=== PATIENT | female | born 1960 | race Caucasian/White ===

== ENCOUNTER 2019-08-09 12:10 | Inpatient (IN) ==
[2019-08-09] MEDS: ZOFRAN IV ONE ×2 (12:31→13:34)
[2019-08-09] MEDS ORDERED: NS 1,000 ML IV ONE ×2 (12:31→15:13)
[2019-08-09] MEDS: MORPHINE IV ONE ×2 (12:31→13:33)
[2019-08-09] MEDS ORDERED: ASPIRIN PO ONE (12:31)
--- NOTE | 2019-08-09 12:35 | Diag Imaging Result Doc PS360 ---
EXAM: CT HEAD W/O CONTRAST 08/09/2019 HISTORY: STROKE ALERT TECHNIQUE: This exam was performed using automated exposure control, adjustment of mA or kV according to patient size, and/or use of iterative reconstruction technique. COMMENT: There are abnormal lucencies in the anterior limb of the internal capsule and caudate nucleus head on the right. There is some patchy lucency in the periventricular white matter particularly near the atria of the lateral ventricles. There are atherosclerotic calcifications in the right vertebral and both internal carotid arteries. No evidence of bleed or abnormal extra-axial fluid collection is present. There is no evidence of mass effect. The visualized paranasal sinuses are clear and the calvarium is intact. IMPRESSION: Chronic microvascular changes. Further evaluation with MRI may be desirable. Electronically signed by Hudson Berger 08/09/2019 12:33 PM
--- NOTE | 2019-08-09 13:00 | PROVIDER DOCUMENTATION ---
This chart was entered by Christel Domínguez Scribe, acting as scribe for Juan Kamara MD. HPI-Neurological Disorder - General Source: patient, EMS - History of Present Illness-Neuro Headache Location: reports: global Severity: reports: mild Onset/Duration: reports: just prior to arrival Timing: reports: improving Context: reports: impaired speech (slurred), facial droop (left), other (left side weakness) Character of Altered Mental Status: reports: N/A Character of Deficits: reports: new weakness, impaired speech (slurred) New weakness or altered sensation location:: reports: LUE, LLE, left facial Cognitive Baseline: alert, oriented x3 Gait Baseline: walks without assistance Associated Symptoms: reports: headache Similar Symptoms Previously?: No Recently seen or treated by another doctor?: No <Juan Kamara - Last Filed: 08/09/19 13:51> <Albania Singh - Last Filed: 08/09/19 14:35> - General Chief Complaint: STROKE ALERT Stated Complaint: STROKE Time Seen by Provider: 08/09/19 12:23 Allergies/Adverse Reactions: Patient Allergies Allergy/AdvReac Type Severity Reaction Status Date / Time midazolam Allergy ANAPHYLAXIS Verified 08/09/19 13:05 Home Medications: Home Medication List Medication Instructions Recorded Confirmed Last Taken Type Amlodipine Besylate [Norvasc] 1 tab PO DAILY 08/09/19 08/09/19 08/09/19 History Aspirin 81 mg PO DAILY 08/09/19 08/09/19 08/09/19 History Clonidine [Catapres] 1 tab PO HS 08/09/19 08/09/19 08/09/19 History Diazepam [Valium] 1 mg PO DAILY 08/09/19 08/09/19 08/09/19 History Escitalopram Oxalate [Lexapro] 1 tab PO DAILY 08/09/19 08/09/19 08/09/19 History Estrogens, Conjugated [Premarin] 1 tab PO DAILY 08/09/19 08/09/19 08/09/19 History Zolpidem [Ambien] 1 tab PO QHS 08/09/19 08/09/19 08/09/19 History - History of Present Illness-Neuro Nature of Presenting Problem: Patient is a 58 year old female who presents to the ED via EMS with stroke like symptoms. EMS states the call first came in as dizziness. EMS reports patient started to have left side facial droop, slurred speech and weakness to LUE and LLE en route. Patient states having a SALAZAR currently. History of TIA. Reports taking a 81 mg ASA daily. Denies numbness. (Juan Kamara) Review of Systems - Adult - REVIEW OF SYSTEMS - ADULT Constitutional: reports: no symptoms reported Eyes: reports: no symptoms reported Ears, Nose, Mouth & Throat: reports: no symptoms reported Cardiovascular: reports: no symptoms reported Respiratory: reports: no symptoms reported Gastrointestinal: reports: no symptoms reported Genitourinary: reports: no symptoms reported Musculoskeletal: reports: no symptoms reported Integumentary: reports: no symptoms reported Neurological: reports: see HPI, headache/migraines (SALAZAR). denies: numbness, slurred speech Psychiatric: reports: no symptoms reported Endocrine: reports: no symptoms reported Hematologic/Lymphatic: reports: no symptoms reported Allergic/Immunologic: reports: no symptoms reported All Other Systems: Reviewed and Negative <Juan Kamara - Last Filed: 08/09/19 13:51> Past History - Adult - PAST MEDICAL HISTORY-ADULT Review of Records: reports: Old Records Reviewed, Nursing Assessment Review, Medications Reviewed, Social history reviewed & non-contributory. Major Childhood Illnesses: reports: denies history Cardiovascular: reports: HTN Respiratory: reports: denies history Gastrointestinal: reports: denies history Obstetrical/Gynecological: reports: denies history Genitourinary: reports: other (left kidney removed) Musculoskeletal: reports: denies history Neurological: reports: TIA Endocrine/Immune: reports: denies history Other Conditions: reports: denies history - PRIOR SURGERIES/PROCEDURES Surgical/Procedure History: reports: reviewed, not pertinent, appendectomy, hysterectomy, - IMMUNIZATION STATUS Childhood Immunizations: See Nurse Assessment Flu Vaccine: See Nurse Assessment - FAMILY HISTORY Family History: reviewed, not pertinent - SOCIAL HISTORY Smoking: cigarettes, less than 1 pack/day Provider spent 3-5 mins advising pt. on dangers of tobacco.: Discussed manners to quit use, and f/u contacts for add'l counseling. Substance Use: denies <Juan Kamara - Last Filed: 08/09/19 13:51> Physical Exam- Neurological - Physical Exam-Neuro Initial Vital Signs Reviewed: Yes General Appearance: alert, no apparent distress. negative: slow to respond Eye Exam: bilateral eye: normal inspection HENMT: normocephalic/atraumatic, moist mucous membranes Head Injury: no evidence of injury. negative: active bleeding, lacerations Respiratory: chest non-tender, lungs clear, normal breath sounds. negative: wheezing Cardiovascular: regular rate, rhythm. negative: tachycardia Abdominal Exam: normal bowel sounds, non tender, soft. negative: rigid Extremity: non-tender, normal inspection, other (3 + reflex in BLE and LUE. 2 + reflex in RUE). 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 negative: abnormal speech, facial droop Motor/Sensory: no sensory deficit, no pronator drift, weak motor strength LUE, weak motor strength LLE Neurologic: motor weakness (LUE and LLE). negative: aphasia, facial droop, sensory deficit Integumentary: normal color, normal turgor, warm/dry. negative: diaphoresis, pallor Psych/Mental Status: normal mood/affect, normal thought content, normal thought process, oriented x 3. negative: anxious <Juan Kamara - Last Filed: 08/09/19 13:51> Progress - PLAN OF CARE/RESULTS Result Diagrams: 08/09/19 12:52 08/09/19 12:52 - EKG 1 Time of EKG reading by physician:: 12:31 EKG Read and Signed by:: Juan Kamara EKG Interpretation (*Must complete 3 of following elements*): Normal Rate: 60 Rhythm: NSR Point Lay: normal VT Interval: normal Comments: normal ECG; no STEMI - XRAY 1 XRAY Study: Chest Impression: See EMR Report (EXAM: CHEST-PORTABLE 08/09/2019 HISTORY: stroke like symptoms TECHNIQUE: AP portable upright at 1237 COMMENT: There is a granuloma in the right upper lobe. The heart size and pulmonary vascularity are within normal limits. Compared to 02/24/2015 there has been no significant change. IMPRESSION: No acute disease. Electronically signed by Hudson Berger 08/09/2019 1:21 PM 08/09/19 1321 Interpreting Physician: Hudson Berger MD Dictated Date/Time: 08/09/19 1321 cc: Juan Kamara MD; Papa Martin MD) - CT/MRI 1 CT Study: Head Impression: See EMR Report (EXAM: CT HEAD W/O CONTRAST 08/09/2019 HISTORY: STROKE ALERT TECHNIQUE: This exam was performed using automated exposure control, adjustment of mA or kV according to patient size, and/or use of iterative reconstruction technique. COMMENT: There are abnormal lucencies in the anterior limb of the internal capsule and caudate nucleus head on the right. There is some patchy lucency in the periventricular white matter particularly near the atria of the lateral ventricles. There are atherosclerotic calcifications in the right vertebral and both internal carotid arteries. No bette dence of bleed or abnormal extra-axial fluid collection is present. There is no evidence of mass effect. The visualized paranasal sinuses are clear and the calvarium is intact. IMPRESSION: Chronic microvascular changes. Further evaluation with MRI may be desirable. Electronically signed by Hudson Berger 08/09/2019 12:33 PM 08/09/19 1233 Interpreting Physician: Hudson Berger MD Dictated Date/Time: 08/09/19 1232 cc: Juan Kamara MD; Papa Martin MD) - CONSULTS/PCP/HOSPITALIST Notification #1 *Consult/PCP/Hospitalist*: Dr. Martin Time Discussed: 13:49 Reason/Comments: Dr. Singh consulted with Dr. Martin about patient Consult Disposition: Admit - CHANGE OF SHIFT REPORT (ED Provider) 1 Report Given and Care Transferred to:: Dr. Singh Time of Transfer: 13:00 <Juan Kamara - Last Filed: 08/09/19 13:51> - PLAN OF CARE/RESULTS Result Diagrams: 08/09/19 12:52 08/09/19 12:52 - REASSESSMENT Reassessment #1 Status: improving (received patient at shift change , with left cade facial upper ext weakness resolved upon reevaluation. spoke to dr martin, will admit TIA protocal) <Albania Singh - Last Filed: 08/09/19 14:35> - PLAN OF CARE/RESULTS Progress/Plan/Lab Results: Vital Signs - 8 hr 08/09/19 12:38 08/09/19 13:00 08/09/19 13:30 Temperature 97.6 F Pulse Rate 63 51 L 52 L Respiratory Rate 17 23 17 Blood Pressure 177/100 188/97 195/110 O2 Sat by Pulse Oximetry 98 98 99 Laboratory Results - last 24 hr 08/09/19 08/09/19 08/09/19 12:51 12:52 12:52 WBC RBC Hgb Hct MCV MCH MCHC RDW Std Deviation Plt Count MPV Immature Gran % (Auto) Neut % (Auto) Lymph % (Auto) [place] % (Auto) Eos % (Auto) Baso % (Auto) Immature Gran # (Auto) Neut # (Auto) Lymph # (Auto) [place] # (Auto) Eos # (Auto) Baso # (Auto) PT INR PTT (Actin FS) Sodium 140 Potassium 4.1 Chloride 103 Carbon Dioxide 25 Anion Gap 12 BUN 14 Creatinine 1.0 H Estimated GFR/1.73 m2 57 BUN/Creatinine Ratio 14 Glucose 92 POC Glucose 87 Calculated Osmolality 280 Calcium 9.3 Total Bilirubin 0.49 AST 13 ALT 7 L Alkaline Phosphatase 76 Troponin T High Sens 10 Total Protein 6.7 Albumin 4.0 Globulin 2.7 Albumin/Globulin Ratio 1.5 Urine Source Urine Color Urine Turbidity Urine pH Ur Specific [place] Urine Protein Ur Glucose (Stick) Ur Ketones (Stick) Urine Blood Urine Nitrite Urine Bilirubin Urobilinogen Dipstick Urine Leukocytes Urine WBC (Auto) Urine RBC (Auto) U Epithel Cells (Auto) Urine Bacteria (Auto) Urine Opiates Screen Ur Oxycodone Screen Ur Methadone, Qual Ur Barbiturates Screen Ur Phencyclidine Scrn Ur Amphetamines Screen U Benzodiazepines Scrn Urine Cocaine Screen U Cannabinoids Screen 08/09/19 08/09/19 08/09/19 12:52 12:52 13:30 WBC 4.57 L RBC 5.21 Hgb 15.0 Hct 42.9 MCV 82.3 MCH 28.8 MCHC 35.0 RDW Std Deviation 13.8 Plt Count 183 MPV 10.5 H Immature Gran % (Auto) 0.0 Neut % (Auto) 60.4 Lymph % (Auto) 30.9 [place] % (Auto) 7.0 Eos % (Auto) 1.5 Baso % (Auto) 0.2 Immature Gran # (Auto) 0.00 Neut # (Auto) 2.76 Lymph # (Auto) 1.41 [place] # (Auto) 0.32 Eos # (Auto) 0.07 Baso # (Auto) 0.01 PT 13.5 INR 1.02 PTT (Actin FS) 34.7 Sodium Potassium Chloride Carbon Dioxide Anion Gap BUN Creatinine Estimated GFR/1.73 m2 BUN/Creatinine Ratio Glucose POC Glucose Calculated Osmolality Calcium Total Bilirubin AST ALT Alkaline Phosphatase Troponin T High Sens Total Protein Albumin Globulin Albumin/Globulin Ratio Urine Source Urine Color Urine Turbidity Urine pH Ur Specific [place] Urine Protein Ur Glucose (Stick) Ur Ketones (Stick) Urine Blood Urine Nitrite Urine Bilirubin Urobilinogen Dipstick Urine Leukocytes Urine WBC (Auto) Urine RBC (Auto) U Epithel Cells (Auto) Urine Bacteria (Auto) Urine Opiates Screen NONE DETECTED Ur Oxycodone Screen PRESUMPTIVE POSITIVE A Ur Methadone, Qual NONE DETECTED Ur Barbiturates Screen NONE DETECTED Ur Phencyclidine Scrn NONE DETECTED Ur Amphetamines Screen NONE DETECTED U Benzodiazepines Scrn PRESUMPTIVE POSITIVE A Urine Cocaine Screen NONE DETECTED U Cannabinoids Screen NONE DETECTED 08/09/19 13:30 WBC RBC Hgb Hct MCV MCH MCHC RDW Std Deviation Plt Count MPV Immature Gran % (Auto) Neut % (Auto) Lymph % (Auto) [place] % (Auto) Eos % (Auto) Baso % (Auto) Immature Gran # (Auto) Neut # (Auto) Lymph # (Auto) [place] # (Auto) Eos # (Auto) Baso # (Auto) PT INR PTT (Actin FS) Sodium Potassium Chloride Carbon Dioxide Anion Gap BUN Creatinine Estimated GFR/1.73 m2 BUN/Creatinine Ratio Glucose POC Glucose Calculated Osmolality Calcium Total Bilirubin AST ALT Alkaline Phosphatase Troponin T High Sens Total Protein Albumin Globulin Albumin/Globulin Ratio Urine Source CATH Urine Color YELLOW Urine Turbidity HAZY Urine pH 6.5 Ur Specific [place] 1.018 Urine Protein TRACE A Ur Glucose (Stick) NEGATIVE Ur Ketones (Stick) NEGATIVE Urine Blood NEGATIVE Urine Nitrite POSITIVE A Urine Bilirubin NEGATIVE Urobilinogen Dipstick NORMAL Urine Leukocytes LARGE A Urine WBC (Auto) TNTC A Urine RBC (Auto) <10 U Epithel Cells (Auto) <10 Urine Bacteria (Auto) 4+ Urine Opiates Screen Ur Oxycodone Screen Ur Methadone, Qual Ur Barbiturates Screen Ur Phencyclidine Scrn Ur Amphetamines Screen U Benzodiazepines Scrn Urine Cocaine Screen U Cannabinoids Screen Orders Category Date Time Status Cardiac Monitoring DIRECTED Care 08/09/19 12:29 Active Finger Stick Blood Sugar (ED) DIRECTED Care 08/09/19 12:29 Active Oxygen Therapy- ED Nursing DIRECTED Care 08/09/19 12:29 Active Saline Loc NOW Care 08/09/19 12:29 Active CHEST-PORTABLE [RAD] Stat Exams 08/09/19 12:[address] HEAD W/O CONTRAST [CT] Stat Exams 08/09/19 12:11 Completed CBC WITH ELECTRONIC DIFF [HEME] Stat Lab 08/09/19 12:52 Completed COMPREHENSIVE METABOLIC PANEL [CHEM] Stat Lab 08/09/19 12:52 Completed PROTIME WITH INR [COAG] Stat Lab 08/09/19 12:52 Completed PTT [COAG] Stat Lab 08/09/19 12:52 Completed TROPONIN T HIGH SENSITIVITY Stat Lab 08/09/19 12:52 Completed URINALYSIS W/POSS RFLX CULT [URINALYSIS] Stat Lab 08/09/19 13:30 Completed URINE CULTURE [RM] Routine Lab 08/09/19 13:30 Received URINE DRUG SCREEN Stat Lab 08/09/19 13:30 Completed 0.9% Sodium Chloride Inj [Ns] 1,000 ml Med 08/09/19 12:31 Discontinued IV 999 mls/hr Aspirin Med 08/09/19 12:31 Discontinued 325 mg PO NOW ONE Morphine Med 08/09/19 12:31 Discontinued 2 mg IV NOW ONE Ondansetron [Zofran] Med 08/09/19 12:31 Discontinued 4 mg IV NOW ONE EKG [EKG] Stat Ther 08/09/19 12:29 Active Transfer/Admit Order [TRANSFER] Routine Transfer 08/09/19 13:48 Ordered Departure - Departure Date of Disposition Decision: 08/09/19 Time of Disposition Decision: 13:50 Certified Medical Emergency: Emergent - Critical Care Note This patient required my direct & personal management of CC.: No <Juan Kamara - Last Filed: 08/09/19 13:51> - Departure Date of Disposition Decision: 08/09/19 Time of Disposition Decision: 13:46 Certified Medical Emergency: Emergent <Albania Singh - Last Filed: 08/09/19 14:35> - Departure DIAGNOSIS: TIA (transient ischemic attack), Hypertension Disposition: ADMITTED INPATIENT 09 Condition: Stable Attestation - Physician/ MAYLIN Attestation Patient care was provided by Advanced Practice Provider:: No The physician spent face to face time with patient:: Yes Advanced Practice Provider documentation review:: Supervising physician onsite and consulted in the evaluation and care of this patient. The physician did have a face to face encounter with the patient. <Juan Kamara - Last Filed: 08/09/19 13:51> This chart was documented by the indicated scribe, (Christel Domínguez Scribe) and accurately reflects the services I performed and decisions made by me, Juan Kamara MD, as attested by the provider's signature.
--- NOTE | 2019-08-09 13:24 | Diag Imaging Result Doc PS360 ---
EXAM: CHEST-PORTABLE 08/09/2019 HISTORY: stroke like symptoms TECHNIQUE: AP portable upright at 1237 COMMENT: There is a granuloma in the right upper lobe. The heart size and pulmonary vascularity are within normal limits. Compared to 02/24/2015 there has been no significant change. IMPRESSION: No acute disease. Electronically signed by Hudson Berger 08/09/2019 1:21 PM
[2019-08-09 13:26] LABS: BASO# 0.01 X1000 (0.0-0.2); BASO% 0.2 % (0.0-0.8); EOS# 0.07 X1000 (0.0-0.7); EOS% 1.5 % (0.0-10.0); HEMATOCRIT 42.9 % (37.0-47.0); LYMPH# 1.41 X1000 (1.2-3.4); LYMPH% 30.9 % (20.5-51.1); MCH 28.8 PG (27-31); MCV 82.3 FL (81-99); MONO# 0.32 X1000 (0.11-0.59); MPV 10.5 FL (7.4-10.4); NEUT# 2.76 X1000 (1.4-6.5); NEUT% 60.4 % (42.2-75.2); PLT 183 X1000 (130-400); RBC 5.21 XMIL (4.2-5.4); RDW 13.8 % (11.5-14.5); WBC 4.57 X1000 (4.8-10.8)
[2019-08-09 13:29] LABS: INR 1.02; PROTIME 13.5 Seconds (11.0-16.0)
[2019-08-09 13:30] LABS: PTT 34.7 Seconds (22.3-41.8)
[2019-08-09 13:35] LABS: ALB/GLOB RATIO 1.5; CALCIUM 9.3 mg/dL (8.8-10.2); POTASSIUM 4.1 mmol/L (3.5-5.1); TOTAL BILIRUBIN 0.49 mg/dL (0.20-1.00); TOTAL PROTEIN 6.7 g/dL (6.3-8.3)
[2019-08-09 13:40] LABS: URINE SOURCE CATH
[2019-08-09 13:48] LABS: BILIRUBIN URINE NEGATIVE (NEGATIVE); BLOOD URINE NEGATIVE (NEGATIVE); COLOR YELLOW; GLUCOSE URINE NEGATIVE (NEGATIVE); KETONE URINE NEGATIVE (NEGATIVE); LEUKOCYTES URINE LARGE (NEGATIVE); NITRITE URINE POSITIVE (NEGATIVE); PH URINE 6.5; PROTEIN URINE TRACE mg/dL (NEGATIVE); SP GRAVITY URINE 1.018; TURBIDITY URINE HAZY (CLEAR); UR EPITHELIAL CELLS <10 /HPF (<10); URINE BACTERIA 4+ /HPF; URINE RBC <10 /HPF (<10); URINE WBC TNTC /HPF (<10); UROBILINOGEN URINE NORMAL (NORMAL)
[2019-08-09 13:55] LABS: UR AMPHETAMINES QUAL NONE DETECTED (NONE DETECT); UR BARBITUATES QUAL NONE DETECTED (NONE DETECT); UR BENZODIAZEPIN QUAL PRESUMPTIVE POSITIVE (NONE DETECT); UR CANNABINOIDS QUAL NONE DETECTED (NONE DETECT); UR COCAINE QUAL NONE DETECTED (NONE DETECT); UR METHADONE QUAL NONE DETECTED (NONE DETECT); UR OPIATES QUAL NONE DETECTED (NONE DETECT); UR OXYCODONE QUAL PRESUMPTIVE POSITIVE (NONE DETECT); UR PCP QUAL NONE DETECTED (NONE DETECT)
--- NOTE | 2019-08-09 20:27 | HISTORY AND PHYSICAL ---
Ms Harris is a 58-year-old white female who was brought to the emergency room after she felt really wobbly and had a slurred speech as well as some weakness in the right hand. The weakness went away right away, and the speech got better. However, she was still wobbly when she came to emergency room and it went away after several minutes after she came to the emergency room. She has a known case of hypertension, has never had this kind of feeling before. She has nervous personality, has been on multiple medications. MEDICATIONS: Including aspirin, clonidine, diazepam, estrogen, zolpidem as well as amlodipine. SURGICAL HISTORY: She has a strong surgical history of 4 back surgeries, left nephrectomy, hysterectomy and 2 sections. She has been a smoker, smokes about a quarter pack of cigarettes per day on a daily basis. She drinks only socially. ALLERGIES: She is allergic to midazolam. REVIEW OF SYSTEMS: She denies having any seizures or headache or blurred reason prior to this episode. She was standing at the stove when this happened. REVIEW OF SYSTEMS: Otherwise unremarkable. Cardiopulmonary negative for chest pain or shortness of breath. PHYSICAL EXAMINATION: VITAL SIGNS: Her vital signs when she came to the ER, her blood pressure was 195/110, temperature normal, pulse 52 per minute, respiratory rate 17 per minute. HEENT: Head normocephalic. Pupils PERRLA. Fundus examination deferred. NECK: Supple. JVP normal. ENT examination unremarkable there is no evidence of lymphadenopathy, thyroid enlargement, pedal edema, calf tenderness, anemia, cyanosis or clubbing. Pedal pulses well felt. BREAST EXAM: Not done. Chest normal to inspection. LUNGS: Clear on auscultation. PMI in the normal position. HEART: Sounds normal. No murmur, gallop or rub noted. ABDOMEN: Nondistended. Revealed multiple scars from previous surgery. No guarding, rigidity, free fluid, masses, or organomegaly. Bowel sounds normal. RECTAL: Deferred. 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 Cranial nerves normal. Motor and sensory system examination unremarkable. Deep tendon reflexes normal. Plantars downgoing. Skull and spine examination normal for age. No cerebellar signs or signs of meningeal irritation. Local motor exam, skin exam unremarkable. CLINICAL IMPRESSION: Transient ischemic attack. Patient has uncontrolled hypertension. Initial CT scan shows microvascular changes. MRI has been recommended. We will keep her on telemetry, watch her other neurological signs and symptoms tonight and then decide tomorrow about further management. cc: Papa Larsen MD
[2019-08-09] MEDS: CATAPRES PO SCH (22:00)
[2019-08-09] MEDS: CIPRO PO SCH (22:00)
[2019-08-09] MEDS: AMBIEN PO PRN (22:01)
[2019-08-09] MEDS: PERCOCET-5 PO PRN (22:29)
[2019-08-10] MEDS: PERCOCET-5 PO PRN ×4 (02:31→21:07)
[2019-08-10] MEDS: CATAPRES PO SCH ×2 (03:38→21:00)
[2019-08-10] MEDS ORDERED: NORVASC PO SCH (09:00)
[2019-08-10] MEDS ORDERED: ESCITALOPRAM OXALATE PO SCH (09:00)
[2019-08-10] MEDS: VALIUM PO SCH (10:24)
[2019-08-10] MEDS: ASPIRIN PO SCH (10:24)
[2019-08-10] MEDS: CIPRO PO SCH ×2 (10:29→21:01)
[2019-08-10] MEDS: PREMARIN PO SCH (10:30)
--- NOTE | 2019-08-10 13:11 | PROGRESS NOTE ---
DATE: 08/10/2019 Ms. Harris has some bradycardia. Blood pressure is down some. She does not have any new neurological symptoms and neurologically, it appears like she is stable. She has gram-negative derek isolated in the urine. We have started Cipro yesterday. Carotid flow studies have been done on her. Overall condition is stable. -7 cc: Papa Larsen MD
[2019-08-10] MEDS: LABETALOL IV PRN ×3 (13:53→21:15)
[2019-08-10] MEDS: AMBIEN PO PRN (21:06)
[2019-08-11] MEDS: LABETALOL IV PRN (01:45)
[2019-08-11] MEDS: PERCOCET-5 PO PRN ×2 (04:46→08:37)
[2019-08-11] MEDS: ASPIRIN PO SCH (08:35)
[2019-08-11] MEDS: CIPRO PO SCH (08:36)
[2019-08-11] MEDS: PREMARIN PO SCH (08:36)
[2019-08-11] MEDS: VALIUM PO SCH (08:37)
[2019-08-11] MEDS ORDERED: NORVASC PO SCH (09:00)
[2019-08-11 11:58] VITALS: BP 188/87
--- NOTE | 2019-08-11 12:22 | PROGRESS NOTE ---
DATE: 08/11/2019 Ms. Harris is doing better. Her lungs are clear. Heart sounds are normal. Abdomen is soft, nontender. Carotid flow results are not back. Her blood pressure was 173/81. I am going to discharge her today. -7 cc: Papa Larsen MD
--- NOTE | 2019-08-13 19:35 | Carotid Study ---
DATE: 08/09/2019 STUDY PERFORMED: Bilateral duplex and color flow imaging of the carotid arteries performed using the [employer] Vivid E9 Ultrasound System with a 9L-D transducer. REFERRING PHYSICIAN: Dr. Larsen. STEEL WHEEL ENGRAVER: Carine Brown RVT. INDICATIONS: Transient ischemic attack. FINDINGS: The velocity of blood flow in cm/sec were reviewed throughout both carotid systems. There was forward flow in the right vertebral artery and the right ICA/CCA ratio is 0.77, corresponding 2% stenosis of 0 to 39 percent. The left vertebral artery also had flow through it and the left ICA/CCA ratio is 1.19, corresponding 2% stenosis of 0 to 39 percent. INTERPRETATION: Despite the patient's symptoms, there is only mild atherosclerotic disease of the distal common and internal carotid arteries bilaterally, without evidence of a hemodynamically significant lesion in either carotid system. cc: MD Papa De Leon MD
--- NOTE | 2019-08-13 21:35 | DISCHARGE SUMMARY ---
ADMISSION DATE: 08/09/2019 DISCHARGE DATE: 08/11/2019 Ms. Harris was admitted with history of TIA. She has severe hypertension. LABORATORY DATA: In the hospital, CBC was unremarkable. INR was 1.02. Electrolytes were normal. BUN and creatinine were normal. Troponin was 10. Urinalysis revealed large leukocytes and too numerous WBCs, oxycodone and benzodiazepines were present in the urine. Urine microbiology revealed E. coli sensitive to Levaquin. She was treated with clonidine as well as Norvasc 10 mg aspirin was given. Cipro was given. She was kept on telemetry, did not have any arrhythmias, and blood pressure came down. I gave her prescriptions of Cipro, as well as Norvasc 10 mg, to continue the clonidine and aspirin. Carotid flow studies appear to be unremarkable. E. coli was isolated in the urine. IMPRESSION: TIA, uncontrolled hypertension, acute urinary tract infection. She will be seen in the office in about next 10 days. cc: Papa Larsen MD
== END 2019-08-11 13:58 | disposition home or self-care (01) | DRG 69 ==
LOC: SUPCPDRO → ED 12:10 → EDIPHOLD 14:28 → 3N 19:18
PROVIDERS: ADMIT Internal Medicine; ATTEND Internal Medicine